=== PATIENT | male | born 1980 | race Caucasian/White ===

== ENCOUNTER 2017-04-20 13:38 | Emergency (ER) | payer OTHER ==
[~2017-04-20] VITALS: Ht 180.3 cm; Wt 107.6 kg
[~2017-04-20 13:38] MED LIST: ADDERALL XR 2020 MG PO; INDERAL80 MG PO; NYSTATIN15 G1 TP; OMEPRAZOLE20 MG PO; ROBITUSSIN DM118 ML PO; TRAZODONE HCL150 MG PO; TYLENOL REGULA325 MG PO; ZOLOFT100 MG PO
[2017-04-20 15:38] VITALS: BP 123/64
== END 2017-04-20 15:41 | disposition home or self-care (01) ==
LOC: EME 13:38
DX: F63.81 Intermittent explosive disorder (principal)
CPT/HCPCS: 90839; 99281; 99284